=== PATIENT | male | born 1990 | race Caucasian/White ===

== ENCOUNTER 2024-07-20 03:49 | Emergency (ER) | payer SELFPAY ==
[~2024-07-20] VITALS: Ht 167.6 cm; Wt 103.6 kg
[2024-07-20 03:53] VITALS: BP 117/91; PULSE 70; RESP 18; TEMP 97.8; O2SAT 99
[2024-07-20 04:10] VITALS: BP 117/91; PULSE 70; RESP 18; TEMP 97.8; O2SAT 99
[2024-07-20 05:22] LABS: APPEARANCE,URINE CLEAR (CLEAR); BILIRUBIN,URINE NEGATIVE (NEGATIVE); BLOOD, URINE NEGATIVE (NEGATIVE); COLOR,URINE YELLOW (YELLOW); LEUKOCYTE ESTERASE ,URINE NEGATIVE (NEGATIVE); NITRITE, URINE NEGATIVE (NEGATIVE); PROTEIN,URINE NEGATIVE (NEGATIVE); UGLUCOSE NEGATIVE (NEGATIVE); UROBILINOGEN,URINE 0.2 EU/dL (0.2 - 1)
[2024-07-20 05:55] LABS: BASOPHILS % (AUTO) 0.6 % (0.0-2.0); EOSINOPHILS # (AUTO) 0.1 K/uL (0-0.4); EOSINOPHILS % (AUTO) 1.9 % (0.0-4.0); HEMATOCRIT 44.9 % (36-52); HEMOGLOBIN 15.2 g/dL (12.0-18.0); LYMPHOCYTES # (AUTO) 1.7 K/uL (2.0-11.5); LYMPHOCYTES % (AUTO) 22.3 % (20.5-51.1); MEAN CORPUSCULAR HEMOGLOBIN 30 pg (27-31); MEAN CORPUSCULAR HGB CONC 34 g/dL (33-37); MEAN CORPUSCULAR VOLUME 88.1 fL (80-94); MONOCYTES # (AUTO) 0.6 K/uL (0.8-1.0); MONOCYTES % (AUTO) 8.3 % (1.7-9.3); NEUTROPHILS % (AUTO) 66.9 % (42.2-75.2); PLATELET COUNT (AUTO) 268 K/uL (140-450); RED CELL DISTRIBUTION WIDTH 13.1 % (11.6-13.7); WHITE BLOOD COUNT (AUTO) 7.5 K/uL (4.8-10.8)
[2024-07-20] MEDS: KETOROLAC 30 MG/ML VIAL IVP ONE (05:56)
[2024-07-20] MEDS: NACL 0.9% 1,000 ML IV ONE (05:56)
[2024-07-20 06:12] LABS: ALBUMIN 4.2 g/dL (3.4-5.0); ANION GAP 12.6 (8-16); CALCIUM 9.3 mg/dL (8.5-10.1); CARBON DIOXIDE 26.6 mmol/L (21-32); CREATININE 1.1 mg/dL (0.6-1.3); POTASSIUM 4.2 mmol/L (3.5-5.1); TOTAL BILIRUBIN 0.3 mg/dL (0.0-1.0)
== END 2024-07-20 06:46 | disposition home or self-care (01) ==
LOC: MED 03:49
DX: R10.9 Unspecified abdominal pain (principal); R51.9 Headache, unspecified; M54.9 Dorsalgia, unspecified
CPT/HCPCS: 36415; 80053; 81003; 83690; 85025; 96361; 96374; 99283; J1885; J7030